=== PATIENT | female | born 1985 | race American Indian/Alaskan Native ===

== ENCOUNTER 2018-09-10 07:25 | Day surgery (SDC) | payer OTHER ==
[2018-09-10 07:53] VITALS: BMI 23.1
--- NOTE | 2018-09-10 09:09 | CP.SDSHP ---
Same Day Surgery H & P - History Proposed Procedure: EGD Pre-Op Diagnosis: SEE NOTES - Previous Medical/Surgical History Misc: Other Pain: 4.Moderate Pain - Allergies Allergies: Allergies No Known Allergies Allergy (Verified 09/10/18 07:52) - Physical Exam General Appearance: N Vital Signs: Vital Signs 09/10/18 07:58 Temperature 98.2 F Pulse Rate 54 L Respiratory 20 Rate Blood Pressure 117/75 O2 Sat by Pulse 100 Oximetry Mental Status: Alert & Oriented x3 Neuro: WNL Heart: WNL Lungs: WNL GI: Other - {Optional Preform as Required} Breast: WNL Abdomen: Other Rectal: Other Integument: WNL : WNL Ortho: WNL ENT: WNL - Impression Pt. Evaluated Today:Candidate for Anesthesia & Procedure: Yes - Date & Time Time: 09:09 Short Stay Discharge - Short Stay Discharge Admitting Diagnosis/Reason for Visit: DYSPHAGIA Disposition: HOME/ ROUTINE
[2018-09-10] MEDS ORDERED: Midazolam 2 MG/2 ML VIAL ONE (09:13)
[2018-09-10] MEDS ORDERED: Propofol 10 mg/ml Inj (20 ML) ONE (09:13)
[2018-09-10] MEDS ORDERED: Belladonna-Phenobarbital PO ONE (09:45)
[2018-09-10] MEDS ORDERED: Lidocaine Hydrochloride 5 ML INJ ONE (09:48)
[2018-09-10] MEDS ORDERED: Pantoprazole 40 mg EC Tab PO ONE (10:00)
[2018-09-10] MEDS ORDERED: Albuterol HFA 90 mcg/actuation (8 g) ONE (10:12)
[2018-09-10 11:42] VITALS: TEMP 97
[2018-09-10 11:51] VITALS: BP 128/72; PULSE 69; RESP 20; O2SAT 100
== END 2018-09-10 10:30 | disposition home or self-care (01) ==
LOC: C.ENDO 07:25 → MERGE 07:25 → C.ENDO 10:30
PROVIDERS: ATTEND Specialist
DX: R13.14 Dysphagia, pharyngoesophageal phase (principal); K44.9 Diaphragmatic hernia without obstruction or gangrene; K29.70 Gastritis, unspecified, without bleeding
CPT/HCPCS: 43239; 84703; 88305; 88312; 88342; J2250; J2704; J3010